=== PATIENT | male | born 2000 | race Hispanic/Latino ===

== ENCOUNTER 2018-08-07 10:15 | Emergency (ER) | payer OTHER ==
[~2018-08-07] VITALS: Ht 170.2 cm; Wt 63.5 kg
--- NOTE | 2018-08-07 12:05 | Diagnostic Imaging Report ---
Examination: Single AP view of the chest. COMPARISON: None. INDICATION: DISCUSSION: Lines/tubes: None. Lungs: The lungs are well inflated and clear. There is no evidence of pneumonia or pulmonary edema. Pleura: There is no pleural effusion or pneumothorax. Heart and mediastinum: The heart and the mediastinum are unremarkable. Bones and soft tissues: No acute bony abnormalities. IMPRESSION: 1. No acute cardiopulmonary abnormalities. Signed by: Dr. Santo Olea M.D. on 08/07/2018 12:01 PM
[2018-08-07 13:07] VITALS: BP 116/78
== END 2018-08-07 13:15 | disposition home or self-care (01) ==
LOC: EDSEX 10:15 → ER 10:15
DX: R06.09 Other forms of dyspnea (principal); F41.1 Generalized anxiety disorder
CPT/HCPCS: 71045; 93005; 99284